=== PATIENT | female | born 1995 | race American Indian/Alaskan Native ===

== ENCOUNTER 2017-03-22 13:02 | Emergency (ER) | payer MEDICAID ==
[2017-03-22 13:14] VITALS: BP 105/71
[2017-03-22 15:19] LABS: Hematocrit 34.4 % (30.3-42.9); Hemoglobin 11.4 gm/dl (10.1-14.3); Mean Corpuscular HGB Conc 33 % (30-34); Platelet Count 318 K/mm3 (140-440); Red Blood Count 5.22 M/mm3 (3.65-5.03); Red Cell Distribution Width 17.9 % (13.2-15.2); White Blood Count 5.3 K/mm3 (4.5-11.0)
[2017-03-22 15:28] LABS: Mean Corpuscular Volume 66 fl (79-97)
[2017-03-22 15:29] LABS: Mean Corpuscular Hemoglobin 22 pg (28-32)
[2017-03-22 15:36] LABS: BUN/Creatinine Ratio 11.66; Blood Urea Nitrogen 7 mg/dL (7-17); Calcium 9.1 mg/dL (8.4-10.2); Carbon Dioxide 20 mmol/L (22-30); Chloride 100.3 mmol/L (98-107); Glucose 99 mg/dL (65-100); Potassium 3.7 mmol/L (3.6-5.0); Sodium 137 mmol/L (137-145)
[2017-03-22 15:37] LABS: Anion Gap 20 mmol/L
[2017-03-22 16:50] LABS: Blastocytes % (Manual) 0 %
[2017-03-22 16:51] LABS: Anisocytosis 1+; Hypochromasia 2+; Large Platelets 1+
[2017-03-22 16:52] LABS: Diff Status Complete; Ovalocytes 1+; Platelet Estimate Consistent w Auto; Tear Drop Cells 1+
--- NOTE | 2017-03-23 00:32 | ED Elopement Review ---
ED Pt Elopement review - Results review Lab results: Laboratory Tests 03/22/17 03/22/17 03/22/17 15:05 15:05 15:05 WBC 5.3 RBC 5.22 H Hgb 11.4 Hct 34.4 MCV 66 L MCH 22 L MCHC 33 RDW 17.9 H Plt Count 318 Add Manual Diff Complete Total Counted 100 Seg Neuts % (Manual) 50.0 Band Neutrophils % 0 Lymphocytes % (Manual) 37.0 H Reactive Lymphs % (Man) 2.0 Monocytes % (Manual) 8.0 H Eosinophils % (Manual) 1.0 Basophils % (Manual) 2.0 H Metamyelocytes % 0 Myelocytes % 0 Promyelocytes % 0 Blast Cells % 0 Nucleated RBC % Not Reportable Seg Neutrophils # Man 2.7 Band Neutrophils # 0.0 Lymphocytes # (Manual) 2.0 Abs React Lymphs (Man) 0.1 Monocytes # (Manual) 0.4 Eosinophils # (Manual) 0.1 Basophils # (Manual) 0.1 Metamyelocytes # 0.0 Myelocytes # 0.0 Promyelocytes # 0.0 Blast Cells # 0.0 WBC Morphology Not Reportable Hypersegmented Neuts Not Reportable Hyposegmented Neuts Not Reportable Hypogranular Neuts Not Reportable Smudge Cells Not Reportable Toxic Granulation Not Reportable Toxic Vacuolation Not Reportable Dohle Bodies Not Reportable Pelger-Huet Anomaly Not Reportable Lisa Rods Not Reportable Platelet Estimate Consistent w auto Clumped Platelets Not Reportable Plt Clumps, EDTA Not Reportable Large Platelets 1+ Giant Platelets Not Reportable Platelet Satelliting Not Reportable Plt Morphology Comment Not Reportable RBC Morphology Not Reportable Dimorphic RBCs Not Reportable Polychromasia Not Reportable Hypochromasia 2+ Poikilocytosis Not Reportable Anisocytosis 1+ Microcytosis Not Reportable Macrocytosis Not Reportable Spherocytes Not Reportable Pappenheimer Bodies Not Reportable Sickle Cells Not Reportable Target Cells Not Reportable Tear Drop Cells 1+ Ovalocytes 1+ Helmet Cells Not Reportable Diaz-Magna Bodies Not Reportable Hudson Rings Not Reportable [place] Cells Not Reportable Bite Cells Not Reportable Crenated Cell Not Reportable Elliptocytes Not Reportable Acanthocytes (Spur) Not Reportable Rouleaux Not Reportable Hemoglobin C Crystals Not Reportable Schistocytes Not Reportable Malaria parasites Not Reportable Mike Bodies Not Reportable Hem Pathologist Commnt No Sodium 137 Potassium 3.7 Chloride 100.3 Carbon Dioxide 20 L Anion Gap 20 BUN 7 Creatinine 0.6 L Estimated GFR > 60 BUN/Creatinine Ratio 11.66 Glucose 99 Calcium 9.1 Plasma/Serum Alcohol < 0.01 - Call Back decision Pt Call Back Decision: No action required
== END 2017-03-22 16:33 | disposition left against medical advice (07) ==
LOC: ED 13:02
DX: Z76.0 Encounter for issue of repeat prescription (principal); Z53.21 Procedure and treatment not carried out due to patient leaving prior to being seen by health care provider
CPT/HCPCS: 36415; 80048; 85007; 85025; G0480; 80320

== ENCOUNTER 2017-04-19 17:41 | Emergency (ER) | payer MEDICAID | END 2017-04-19 20:30 | disposition left against medical advice (07) | LOC: ED 17:41 | DX: M79.605 Pain in left leg (principal); Z53.21 Procedure and treatment not carried out due to patient leaving prior to being seen by health care provider ==

== ENCOUNTER 2018-01-12 16:15 | Emergency (ER) | payer MEDICAID ==
[2018-01-12 17:18] VITALS: BP 109/61
== END 2018-01-12 17:05 | disposition left against medical advice (07) ==
LOC: ED 16:15
DX: R10.9 Unspecified abdominal pain (principal); Z53.21 Procedure and treatment not carried out due to patient leaving prior to being seen by health care provider

== ENCOUNTER 2018-01-12 23:42 | Outpatient (CLI) | payer MEDICAID ==
[2018-01-13 00:05] VITALS: BP 100/62
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
== END 2018-01-13 01:27 | disposition left against medical advice (07) ==
LOC: TRG 23:42
PROVIDERS: ATTEND Obstetrics & Gynecology
DX: O47.02 False labor before 37 completed weeks of gestation, second trimester (principal); Z3A.21 21 weeks gestation of pregnancy
CPT/HCPCS: 59025; 76805

== ENCOUNTER 2019-02-04 08:27 | Emergency (ER) | payer MEDICAID ==
[2019-02-04 08:36] VITALS: BP 111/76
[2019-02-04] MEDS ORDERED: ATIVAN ONE (08:56)
[2019-02-04 09:18] LABS: Basophils # (Auto) 0.1 K/mm3 (0.0-0.1); Basophils % (Auto) 0.9 % (0.0-1.8); Eosinophils # (Auto) 0.2 K/mm3 (0.0-0.4); Eosinophils % (Auto) 3.3 % (0.0-4.3); Hemoglobin 12.1 gm/dl (10.1-14.3); Lymphocytes # (Auto) 2.5 K/mm3 (1.2-5.4); Lymphocytes % (Auto) 36.7 % (13.4-35.0); Mean Corpuscular HGB Conc 35 % (30-34); Mean Corpuscular Volume 72 fl (79-97); Monocytes # (Auto) 0.7 K/mm3 (0.0-0.8); Monocytes % (Auto) 10.8 % (0.0-7.3); Platelet Count 285 K/mm3 (140-440); Red Blood Count 4.86 M/mm3 (3.65-5.03); Red Cell Distribution Width 17.2 % (13.2-15.2)
--- NOTE | 2019-02-04 09:25 | Emergency Department Report ---
ED Female HPI - General Chief complaint: Vaginal Bleeding Stated complaint: ABD PAIN Time Seen by Provider: 02/04/19 09:21 Source: patient, EMS Mode of arrival: Ambulatory Limitations: No Limitations - History of Present Illness Initial comments: Patient is 23 years old female with no significant past medical history. Patient is 4 para 3, approximately 3 months . Patient presented to the ER complaining OF vaginal bleeding started this morning. Compared to her cycle patient stated that is less. Patient denied any dizziness, shortness of breath, abdominal pain, nausea or vomiting. MD Complaint: vaginal bleeding - Related Data Allergies Allergy/AdvReac Type Severity Reaction Status Date / Time No Known Allergies Allergy Verified 08/23/16 21:34 ED Review of Systems ROS: Stated complaint: ABD PAIN Other details as noted in HPI Comment: All other systems reviewed and negative Constitutional: denies: chills, fever Respiratory: denies: cough, orthopnea, shortness of breath, SOB with exertion, wheezing Cardiovascular: denies: chest pain Gastrointestinal: denies: abdominal pain, nausea, vomiting, diarrhea, constipation, hematemesis Musculoskeletal: denies: back pain Neurological: denies: headache ED Past Medical Hx - Past Medical History Previous Medical History?: Yes Hx Hypertension: No Hx Diabetes: No Hx Deep Vein Thrombosis: No Hx Renal Disease: No Hx Sickle Cell Disease: No Hx Seizures: No Hx Psychiatric Treatment: Yes Hx Asthma: No Hx HIV: No - Social History Smoking Status: Former Smoker Substance Use Type: None ED Physical Exam - General Limitations: No Limitations General appearance: alert, in no apparent distress - Head Head exam: Present: atraumatic, normocephalic, normal inspection - Eye Eye exam: Present: normal appearance, PERRL - ENT ENT exam: Present: normal exam, normal orophraynx, mucous membranes moist - Neck Neck exam: Present: normal inspection. Absent: tenderness, meningismus - Respiratory Respiratory exam: Present: normal lung sounds bilaterally - Cardiovascular Cardiovascular Exam: Present: regular rate, normal rhythm, normal heart sounds - GI/Abdominal GI/Abdominal exam: Present: soft, normal bowel sounds. Absent: distended, tenderness, guarding, rebound, rigid - Extremities Exam Extremities exam: Present: normal inspection, full ROM, normal capillary refill - Back Exam Back exam: Present: normal inspection, full ROM - Neurological Exam Neurological exam: Present: alert, oriented X3 - Skin Skin exam: Present: warm, intact, normal color ED Course Vital Signs 02/04/19 08:33 Temperature 98.8 F Pulse Rate 89 Respiratory 16 Rate Blood Pressure 111/76 O2 Sat by Pulse 100 Oximetry ED Medical Decision Making - Lab Data Result diagrams: 02/04/19 08:49 Critical care attestation.: If time is entered above; I have spent that time in minutes in the direct care of this critically ill patient, excluding procedure time. ED Disposition Clinical Impression: Vaginal bleeding affecting early Disposition: Z07 ELOPED Is pt being admited?: No Condition: Stable Instructions: Abdominal Pain (ED) Referrals: DAE DAVALOS MD [Primary Care Provider] - 3-5 Days
== END 2019-02-04 10:33 | disposition left against medical advice (07) ==
LOC: ED 08:27
DX: O20.9 Hemorrhage in early pregnancy, unspecified (principal); Z87.891 Personal history of nicotine dependence; Z3A.12 12 weeks gestation of pregnancy
CPT/HCPCS: 36415; 84702; 84703; 85025; 86900; 86901; J2060

== ENCOUNTER 2019-02-12 23:28 | Emergency (ER) | payer MEDICAID ==
[2019-02-12] MEDS ORDERED: TYLENOL ONE (23:42)
[2019-02-12 23:47] VITALS: BP 110/62
[2019-02-12] MEDS ORDERED: TYLENOL PO ONE (23:49)
[2019-02-13 00:15] LABS: Basophils # (Auto) 0.1 K/mm3 (0.0-0.1); Basophils % (Auto) 0.8 % (0.0-1.8); Eosinophils # (Auto) 0.1 K/mm3 (0.0-0.4); Eosinophils % (Auto) 1.4 % (0.0-4.3); Hemoglobin 12.1 gm/dl (10.1-14.3); Lymphocytes # (Auto) 2.5 K/mm3 (1.2-5.4); Lymphocytes % (Auto) 25.4 % (13.4-35.0); Mean Corpuscular HGB Conc 34 % (30-34); Mean Corpuscular Volume 74 fl (79-97); Monocytes # (Auto) 0.8 K/mm3 (0.0-0.8); Monocytes % (Auto) 7.8 % (0.0-7.3); Platelet Count 285 K/mm3 (140-440); Red Cell Distribution Width 16.9 % (13.2-15.2)
--- NOTE | 2019-02-13 04:11 | Emergency Department Report ---
ED Abdominal Pain HPI - General Chief Complaint: Abdominal Pain Stated Complaint: ABDOMINAL PAIN Time Seen by Provider: 02/13/19 02:11 Source: patient, EMS Mode of arrival: Ambulatory Limitations: No Limitations - History of Present Illness Initial Comments: 23-year-old -[place] female presents to the emergency room stating that she is and abdominal pain and vaginal bleeding 1 hour. Patient reports to triage nurse that she is 18 weeks but does not know her last menstrual period. Patient is 2 para 10 bleeding at this time. Patient reports that she lives in [place] and had no care. Patient reports no past medical history review of chart shows the patient has a history of bipolar. Patient reports that she currently on no medications. MD Complaint: abdominal pain Onset/Timin -: days(s) Location: suprapubic Severity scale (0 -10): 10 Associated Symptoms: denies other symptoms - Related Data Allergies Allergy/AdvReac Type Severity Reaction Status Date / Time No Known Allergies Allergy Verified 08/23/16 21:34 ED Review of Systems ROS: Stated complaint: ABDOMINAL PAIN Other details as noted in HPI Comment: All other systems reviewed and negative ED Past Medical Hx - Past Medical History Previous Medical History?: Yes Hx Hypertension: No Hx Diabetes: No Hx Deep Vein Thrombosis: No Hx Renal Disease: No Hx Sickle Cell Disease: No Hx Seizures: No Hx Psychiatric Treatment: Yes (Bipolar) Hx Asthma: No Hx HIV: No - Surgical History Past Surgical History?: No - Social History Smoking Status: Current Every Day Smoker Substance Use Type: None ED Physical Exam - General Limitations: No Limitations, Other (patient refused examination and completion of history and physical) ED Course Vital Signs 02/12/19 23:43 Temperature 98.2 F Pulse Rate 65 Respiratory 18 Rate Blood Pressure 110/62 O2 Sat by Pulse 100 Oximetry ED Medical Decision Making - Lab Data Result diagrams: 02/12/19 23:58 - Radiology Data Radiology results: report reviewed Patient: RENALDO DOMINGUEZ MR#: [id number] : 1995 Acct:[id number] Age/Sex: 23 / F ADM Date: 02/12/19 Loc: ED Attending Dr: Ordering Physician: JAYRO KAHN DO Date of Service: 02/12/19 Procedure(s): US OB >= 14 weeks Fetus Accession Number(s): [id number] cc: JAYRO KAHN DO PROCEDURE: US OB >= 14 WEEKS FETUS TECHNIQUE: Transabdominal imaging was obtained of the pelvis. HISTORY: abdominal pain COMPARISONS: 01/13/2018 FINDINGS: There is demise with retained parts in the cervix. The estimated sonographic gestational age is 14 weeks 3 days. Free fluid is not seen in the pelvis. The maternal ovaries not identified. IMPRESSION: demise with retained parts in the cervix.. The findings were discussed with Dr. Kahn at 4:55 AM on 02/13/2019. This document is electronically signed by Avery Harris MD., February 13 2019 04:56:13 AM ET Transcribed By: RB Dictated By: AVERY HARRIS MD Electronically Authenticated By: AVERY HARRIS MD Signed Date/Time: 02/13/198 DD/ 9 TD/TT: 02/13/19210 - Medical Decision Making 23-year-old female comes in with abdominal pain and vaginal bleeding 1 hour. Patient refused to complete history and examination. Patient eloped. Ultrasound performed results from radiologist is pending. Dr. Kahn came to inform me that patient's US results are in and shows demised with retained product. About 14 wk and 3 days. Called patient's Aunt Ms. Kendra Garza at [phone] in inform her to inform patient that there is a critical finding from her US. Ms. Gardner gave me patien's phone number od [phone]. Tried calling but phone can not accept calls at this time. Will need to seen letter. Critical care attestation.: If time is entered above; I have spent that time in minutes in the direct care of this critically ill patient, excluding procedure time. ED Disposition Clinical Impression: Vaginal bleeding affecting early Disposition: DC-07 LEFT AGAINST MED ADVICE Is pt being admited?: No Does the pt Need Aspirin: No Condition: Undetermined Instructions: Abdominal Pain (ED) Referrals: DAE DAVALOS MD [Primary Care Provider] - 3-5 Days
--- NOTE | 2019-02-13 04:58 | Ultrasound Report ---
PROCEDURE: US OB >= 14 WEEKS FETUS TECHNIQUE: Transabdominal imaging was obtained of the pelvis. HISTORY: abdominal pain COMPARISONS: 01/13/2018 FINDINGS: There is demise with retained parts in the cervix. The estimated sonographic gestational age is 14 weeks 3 days. Free fluid is not seen in the pelvis. The maternal ovaries not identified. IMPRESSION: demise with retained parts in the cervix.. The findings were discussed with Dr. Kahn at 4:55 AM on 02/13/2019. This document is electronically signed by Domingo Harris MD., February 13 2019 04:56:13 AM ET
== END 2019-02-13 02:20 | disposition left against medical advice (07) ==
LOC: ED 23:28
DX: O20.9 Hemorrhage in early pregnancy, unspecified (principal); O99.342 Other mental disorders complicating pregnancy, second trimester; F31.9 Bipolar disorder, unspecified; O99.332 Smoking (tobacco) complicating pregnancy, second trimester; Z3A.18 18 weeks gestation of pregnancy
CPT/HCPCS: 36415; 76805; 84702; 85025; 86900; 86901; 99284